=== PATIENT | female | born 1985 | race Caucasian/White ===

== ENCOUNTER 2020-07-19 15:03 | Outpatient (CLI) | payer OTHER | END 2020-07-19 23:59 | disposition home or self-care (01) | LOC: CFH 15:03 | PROVIDERS: ATTEND Obstetrics & Gynecology Female Pelvic Medicine and Reconstructive Surgery | DX: R10.2 Pelvic and perineal pain (principal); Z90.710 Acquired absence of both cervix and uterus | CPT/HCPCS: 76830 ==

== ENCOUNTER → 2020-09-15 | Outpatient (CLI) | payer OTHER ==
[~2020-09-15] MED LIST: ESTR1PAT25 TP; OMEP40CA42 PO; PROG100C16 PO; VALA500T4 PO
== END | disposition home or self-care (01) ==
LOC: STAR 13:04
PROVIDERS: ATTEND Obstetrics & Gynecology Female Pelvic Medicine and Reconstructive Surgery
DX: Z01.812 Encounter for preprocedural laboratory examination (principal); Z20.828 Contact with and (suspected) exposure to other viral communicable diseases; R10.2 Pelvic and perineal pain; N83.202 Unspecified ovarian cyst, left side
CPT/HCPCS: 36415; 87635

== ENCOUNTER 2020-09-19 05:48 | Day surgery (SDC) | payer OTHER ==
[~2020-09-19] VITALS: Ht 175.3 cm; Wt 81.7 kg
[2020-09-19] MEDS ORDERED: EPINEPHRINE 1 MG/ML, 1ML ONE (06:59)
[2020-09-19] MEDS ORDERED: BUPIVACAINE/PF 0.25% ONE (06:59)
[2020-09-19] MEDS ORDERED: LACTATED RINGERS 1,000 ML IV SCH ×2 (07:00→08:30)
[2020-09-19] MEDS ORDERED: CHLORHEXIDINE 15 ML UDC MM ONE (07:00)
[2020-09-19] MEDS ORDERED: LIDOCAINE-MPF 1%, 2ML INFIL ONE (07:00)
[2020-09-19] MEDS ORDERED: SODIUM CHLORIDE 0.9% PF 10ML ONE (07:03)
[2020-09-19] MEDS ORDERED: MIDAZOLAM 1 MG/ML, 2ML ONE (07:03)
[2020-09-19] MEDS ORDERED: FENTANYL PF 250 MCG/5ML ONE (07:03)
[2020-09-19] MEDS ORDERED: LIDOCAINE-MPF 2% ,5ML ONE (07:03)
[2020-09-19] MEDS ORDERED: ACETAMINOPHEN 500 MG TABLET ONE (07:10)
[2020-09-19] MEDS ORDERED: PROMETHAZINE 25 MG/ML, 1ML IVPush PRN (07:30)
[2020-09-19] MEDS ORDERED: HYDROmorphone 1 MG/ML, 1ML INJ IVPush PRN (07:30)
[2020-09-19] MEDS ORDERED: ONDANSETRON 2MG/ML, 2ML IVPush PRN ×2 (07:30→08:30)
[2020-09-19] MEDS ORDERED: ACETAMINOPHEN 500 MG TABLET PO ONE (07:30)
[2020-09-19] MEDS ORDERED: hydrALAzine 20 MG/ML, 1ML IV PRN (07:30)
[2020-09-19] MEDS ORDERED: LABETALOL 5MG/ML, 20ML IV PRN (07:30)
[2020-09-19] MEDS ORDERED: OXYcodone 5 MG/5 ML ORAL.SOL UDC PO PRN (07:30)
[2020-09-19] MEDS ORDERED: MEPERIDINE/PF 25MG/0.5ML IVPush PRN (07:30)
[2020-09-19] MEDS ORDERED: EPHEDRINE 50 MG/ML, 1ML IVPush PRN (07:30)
[2020-09-19] MEDS ORDERED: KETOROLAC 30 MG/1 ML ONE (07:33)
[2020-09-19] MEDS ORDERED: SUGAMMADEX 200 MG/2 ML IVPush ONE (07:33)
[2020-09-19] MEDS ORDERED: DEXAMETHASONE 4 MG/ML, 1ML ONE (07:54)
[2020-09-19] MEDS ORDERED: ROCURONIUM 10MG/ML,5ML ONE (07:54)
[2020-09-19] MEDS ORDERED: PROPOFOL 10 MG/ML, 20ML ONE (07:54)
[2020-09-19] MEDS ORDERED: SUCCINYLCHOLINE 20 MG/ML, 10ML ONE (07:54)
[2020-09-19] MEDS ORDERED: ONDANSETRON 2MG/ML, 2ML ONE (07:54)
[2020-09-19] MEDS ORDERED: CEFAZOLIN 1,000 MG ONE (07:54)
[2020-09-19] MEDS ORDERED: IBUPROFEN 600 MG TABLET PO PRN (08:30)
[2020-09-19] MEDS ORDERED: OXYcodone/APAP 5/325MG TABLET PO PRN (08:30)
[2020-09-19] MEDS ORDERED: PROMETHAZINE 25 MG SUPP PR ONE (08:30)
[2020-09-19] MEDS ORDERED: FENTANYL PF 100 MCG/2ML ONE (08:34)
[2020-09-19] MEDS: FENTANYL PF 100 MCG/2ML IV PRN ×2 (08:36→08:56)
[2020-09-19] MEDS ORDERED: OXYcodone 5 MG/5 ML ORAL.SOL UDC ONE (08:58)
== END 2020-09-19 11:10 | disposition home or self-care (01) ==
LOC: OUT 05:48
PROVIDERS: ATTEND Obstetrics & Gynecology Female Pelvic Medicine and Reconstructive Surgery
DX: R10.32 Left lower quadrant pain (principal); N83.292 Other ovarian cyst, left side; N80.1 Endometriosis of ovary; N73.6 Female pelvic peritoneal adhesions (postinfective); K21.9 Gastro-esophageal reflux disease without esophagitis; M19.90 Unspecified osteoarthritis, unspecified site; G43.909 Migraine, unspecified, not intractable, without status migrainosus; Z79.899 Other long term (current) drug therapy; Z90.710 Acquired absence of both cervix and uterus; Z90.79 Acquired absence of other genital organ(s); Z90.721 Acquired absence of ovaries, unilateral; Z90.89 Acquired absence of other organs; Z82.49 Family history of ischemic heart disease and other diseases of the circulatory system; Z83.42 Family history of familial hypercholesterolemia; Z83.79 Family history of other diseases of the digestive system
CPT/HCPCS: 58661; 58662; 88305; J0171; J0330; J0690; J1100; J1885; J2250; J2405; J2704; J3010; J7120